=== PATIENT | female | born 1950 | race Hispanic/Latino ===

== ENCOUNTER → 2017-06-12 | Outpatient (CLI) | payer OTHER | END | disposition home or self-care (01) | LOC: RAH 08:25 | PROVIDERS: ATTEND Family Medicine | DX: Z12.31 Encounter for screening mammogram for malignant neoplasm of breast (principal) | CPT/HCPCS: 77067 ==

== ENCOUNTER → 2018-04-09 | Outpatient (CLI) | payer OTHER | END | disposition home or self-care (01) | LOC: RAH 13:18 | PROVIDERS: ATTEND Family Medicine | DX: N23 Unspecified renal colic (principal) | CPT/HCPCS: 76770 ==

== ENCOUNTER → 2018-04-13 | Outpatient (CLI) | payer OTHER ==
[~2018-04-13] MED LIST: LOSA50TA64 PO; NAPR-1023 PO; ONDA4TAB10 PO; TAMS0.4C32 PO; TRAM50TA4 PO
== END | disposition home or self-care (01) ==
LOC: RAH 08:47
PROVIDERS: ATTEND Family Medicine
DX: N13.2 Hydronephrosis with renal and ureteral calculous obstruction (principal)
CPT/HCPCS: 74176

== ENCOUNTER 2018-04-19 08:50 | Day surgery (SDC) | payer OTHER ==
[2018-04-16 15:30] VITALS: BP_SYST 138; BP_DIAS 67; BP_DIAS 77
[2018-04-16 15:37] LABS: APPEARANCE,URINE SLIGHTLY CLOUDY (CLEAR); BILIRUBIN,URINE Negative (NEGATIVE); COLOR,URINE Dark Yellow (YELLOW); GLUCOSE, URINE (UA) Negative (NEGATIVE); KETONES,URINE Trace mg/dL (NEGATIVE); LEUKOCYTE ESTERASE ,URINE Moderate (NEGATIVE); NITRATE,URINE Negative (NEGATIVE); OCCULT BLOOD,URINE Moderate (NEGATIVE); PROTEIN,URINE Negative (NEGATIVE)
[2018-04-16 15:55] LABS: BACTERIA,URINE Few /HPF (None Seen); HYALINE CASTS, URINE 0-1 /LPF (0-1 /LPF); MUCUS,URINE Few LPF (None Seen); SQUAMOUS EPITHELIAL CELL,UR Few /HPF (0-2)
--- NOTE | 2018-04-16 16:00 | NUR ---
NOTE PT STATES THAT SHE JUST WENT TO DR. CUEVAS THIS MORNING TO HAVE HER LABS DRAWN AND EKG WAS DONE WELL. CALLED DR. CUEVAS'S OFFICE, SPOKE TO CHARLIE HERNANDEZ. PER MARY, CBC, CMP, PT/PTT AND EKG WERE DONE THIS AM, AND THAT PT HAS A SURGICAL CLEARANCE FROM DR. CUEVAS WELL. CLEARANCE AND LAB RESULTS WILL BE FAXED WHEN AVAILABLE, WHICH IS AROUND TOMORROW IN THE AFTERNOON. FAX NUMBER HERE IN DAY PT PROVIDED TO MARY, STATED SHE WILL FAX LAB RESULTS, EKG AND CLEARANCE TOMORROW WHEN AVAILABLE. EXPLAINED TO PT THAT IF LAB RESULTS ARE ABNORMAL, WILL NEED TO REDRAW MORNING OF PROCEDURE. PT VERBALIZED UNDERSTANDING.
--- NOTE | 2018-04-18 13:59 | NUR ---
NOTE DR SMITH HAS REVIEWED EKG , NO FURTHER ORDER GIVEN, OK TO PROCEED
--- NOTE | 2018-04-18 14:17 | NUR ---
NOTE ELEVATED PLTS WERE SENT TO DR COULTER OFFICE, PER ANTHONY, IT HAS BEEN REVIEWED BY DR HOWELL , NO FURTHER ORDERS GIVEN
[2018-04-19] VITALS (15 sets, daily range): BP systolic 146–179; BP diastolic 73–85
[~2018-04-19] VITALS: Ht 156.2 cm; Wt 61.1 kg
[2018-04-19] MEDS ORDERED: LACTATED RINGERS 1000ML 1,000 ML IV ONE (09:04)
[2018-04-19] MEDS: CEFTRIAXONE SODIUM 1 GM IVP ONE ×2 (09:15→13:00)
[2018-04-19] MEDS ORDERED: IOHEXOL-350 50ML VIAL IV ONE (11:27)
[2018-04-19] MEDS ORDERED: PROPOFOL 10 MG/ML 20ML VIAL IV ONE (11:39)
[2018-04-19] MEDS ORDERED: LIDOCAINE PF 2% 5ML ABBOJECT ONE (11:39)
[2018-04-19] MEDS ORDERED: FENTANYL CITRATE PF 50 MCG/1 ML 2ML VIAL ONE (11:40)
[2018-04-19] MEDS ORDERED: EPHEDRINE SULFATE 50 MG/ML AMPULE ONE (12:24)
[2018-04-19] MEDS ORDERED: LABETALOL HCL 5 MG/ML 20ML VIAL IV ONE (13:08)
[2018-04-19] MEDS ORDERED: ONDANSETRON HCL 4 MG/2 ML VIAL ONE (13:26)
--- NOTE | 2018-04-19 13:46 | NUR ---
RHETT OWENS NOTIFIED OF CURRENT V/S, NO NEW ORDERS THIS TIME. PACU D/C CRITERIA MET, OK TO TRANSFER TO DAY PATIENT. Addendum: 04/19/18 at 1412 by GILBERT CAMPBELL RN RN Amended: Links added.
== END 2018-04-19 14:50 | disposition home or self-care (01) ==
LOC: DAH 08:50
PROVIDERS: ATTEND Urology
DX: N20.1 Calculus of ureter (principal); E78.5 Hyperlipidemia, unspecified; I10 Essential (primary) hypertension; K21.9 Gastro-esophageal reflux disease without esophagitis; M06.9 Rheumatoid arthritis, unspecified; E11.9 Type 2 diabetes mellitus without complications; Z79.899 Other long term (current) drug therapy; Z98.890 Other specified postprocedural states
CPT/HCPCS: 52356; 71045; 74420; 81001; 82948; 87088; A4218; A4354; A4358; A4600; A6207; C1758; C1769; C1894; C2617; J2001; J2405; J2704; J3010; J3490 ×2; J7030; J7120; Q9967

== ENCOUNTER 2019-02-04 13:13 | Emergency (ER) | payer OTHER ==
[2019-02-04] MEDS ORDERED: DIAZEPAM 5 MG TABLET ONE (14:07)
== END 2019-02-04 16:03 | disposition home or self-care (01) ==
LOC: EDH 13:13
DX: S13.9XXA Sprain of joints and ligaments of unspecified parts of neck, initial encounter (principal); Z88.8 Allergy status to other drugs, medicaments and biological substances; Z98.890 Other specified postprocedural states; V23.4XXA Motorcycle driver injured in collision with car, pick-up truck or van in traffic accident, initial encounter; Y93.89 Activity, other specified; Y92.410 Unspecified street and highway as the place of occurrence of the external cause; Y99.8 Other external cause status
CPT/HCPCS: 70450; 71045; 72125

== ENCOUNTER → 2019-04-17 | Outpatient (CLI) | payer OTHER | END | disposition home or self-care (01) | LOC: RAH 13:35 | PROVIDERS: ATTEND Family Medicine | DX: E04.2 Nontoxic multinodular goiter (principal) | CPT/HCPCS: 76536 ==

== ENCOUNTER → 2019-08-23 | Outpatient (CLI) | payer OTHER | END | disposition home or self-care (01) | LOC: RAH 08:51 | PROVIDERS: ATTEND Family Medicine | DX: I70.0 Atherosclerosis of aorta (principal); I11.9 Hypertensive heart disease without heart failure; I49.9 Cardiac arrhythmia, unspecified | CPT/HCPCS: 93306; 93356 ==

== ENCOUNTER → 2019-08-28 | Outpatient (CLI) | payer OTHER | END | disposition home or self-care (01) | LOC: OIH 10:14 | PROVIDERS: ATTEND Family Medicine | DX: Z01.818 Encounter for other preprocedural examination (principal); M47.819 Spondylosis without myelopathy or radiculopathy, site unspecified; I70.0 Atherosclerosis of aorta | CPT/HCPCS: 71046 ==

== ENCOUNTER 2020-01-11 09:43 | Emergency (ER) | payer OTHER | END 2020-01-11 11:16 | disposition home or self-care (01) | LOC: EDH 09:43 | DX: S09.90XA Unspecified injury of head, initial encounter (principal); I10 Essential (primary) hypertension; Z88.6 Allergy status to analgesic agent; W01.0XXA Fall on same level from slipping, tripping and stumbling without subsequent striking against object, initial encounter; Y93.89 Activity, other specified; Y92.89 Other specified places as the place of occurrence of the external cause; Y99.8 Other external cause status | CPT/HCPCS: 70450 ==

== ENCOUNTER → 2020-01-17 | Outpatient (CLI) | payer OTHER | END | disposition home or self-care (01) | LOC: RAH 13:44 | PROVIDERS: ATTEND Family Medicine | DX: Z12.31 Encounter for screening mammogram for malignant neoplasm of breast (principal) | CPT/HCPCS: 77067 ==

== ENCOUNTER → 2021-02-22 | Outpatient (CLI) | payer OTHER | END | disposition home or self-care (01) | LOC: SHCH 14:39 | PROVIDERS: ATTEND Family Medicine | DX: I08.0 Rheumatic disorders of both mitral and aortic valves (principal); I11.9 Hypertensive heart disease without heart failure; E78.5 Hyperlipidemia, unspecified | CPT/HCPCS: 93306; 93356 ==

== ENCOUNTER 2021-05-08 06:10 | Observation (INO) | payer OTHER ==
[~2021-05-08] VITALS: Ht 157.5 cm; Wt 70.8 kg
[2021-05-08] MEDS ORDERED: NITROGLYCERIN 50MG/D5W 250ML 250 BOT IV SCH (06:30)
[2021-05-08] MEDS ORDERED: ASPIRIN 81MG CHEW TAB PO SCH ×2 (06:30→09:00)
[2021-05-08] MEDS ORDERED: ASPIRIN 325MG TAB ONE (06:31)
[2021-05-08] MEDS ORDERED: NITROGLYCERIN 50MG/D5W 250ML 1 BOT ONE (06:31)
[2021-05-08 06:44] LABS: BASOPHILS % (AUTO) 0.7 % (0.0-5.0); EOSINOPHILS % (AUTO) 2.9 % (0.0-8.0); HEMATOCRIT 39.4 % (36-48); MEAN CORPUSCULAR HEMOGLOBIN 31.2 pg (27.0-33.0); MEAN CORPUSCULAR HGB CONC 32.7 g/dL (32.0-36.0); MEAN CORPUSCULAR VOLUME 95.4 fL (79-99); MONOCYTES % (AUTO) 8.5 % (3.0-13.0); NEUTROPHILS % (AUTO) 59.7 % (40.0-77.0); PLATELET COUNT (AUTO) 233 K/uL (130-400); RED BLOOD CELL COUNT(AUTO) 4.13 MIL/uL (4.00-5.50); RED CELL DISTRIBUTION WIDTH 12.3 % (11.0-15.5); WHITE BLOOD COUNT (AUTO) 5.9 K/uL (4.8-10.8)
[2021-05-08 06:52] LABS: INR 0.98 (0.85-1.15); PROTHROMBIN TIME 10.7 SEC (9.6-11.6)
[2021-05-08 06:56] LABS: CREATININE 0.8 mg/dL (0.5-1.5); POTASSIUM 3.8 mmol/L (3.5-5.1); TOTAL PROTEIN, SERUM 7.3 g/dL (6.0-8.3)
[2021-05-08] MEDS ORDERED: ACETAMINOPHEN WITH CODEINE 1 TAB TAB PO PRN (07:00)
[2021-05-08] MEDS ORDERED: MITOMYCIN 40 MG SYR.W..INJ IV SCH (07:00)
[2021-05-08] MEDS ORDERED: ATOR20TA65 PO (07:55)
[2021-05-08] MEDS ORDERED: CHOL500051 PO (07:55)
[2021-05-08] MEDS ORDERED: AEC81 PO (07:55)
[2021-05-08] MEDS ORDERED: METO-408 PO (07:55)
[2021-05-08] MEDS ORDERED: CLONIDINE HCL 0.1 MG TABLET PO PRN (09:00)
[2021-05-08] MEDS ORDERED: ONDANSETRON 4MG INJ IVP PRN (09:00)
[2021-05-08] MEDS ORDERED: ASPIRIN 325MG TAB PO ONE (09:00)
[2021-05-08] MEDS ORDERED: ACETAMINOPHEN 325 MG TAB PO PRN (09:00)
[2021-05-08] MEDS ORDERED: MORPHINE 2 MG SYG IVP PRN (09:00)
[2021-05-08] MEDS ORDERED: ACETAMINOPHEN 650 MG SUPPOSITORY RC PRN (09:00)
[2021-05-08] MEDS ORDERED: TEMAZEPAM 15 MG CAPSULE PO PRN (09:00)
[2021-05-08] MEDS: ENOXAPARIN SODIUM 40 MG/0.4 ML SYRINGE SQ SCH (09:11)
[2021-05-08] MEDS: INSULIN HUMULIN R 100 UNIT/ML 3ML SQ SCH ×3 (11:30→21:00)
[2021-05-08 12:00] VITALS: BP 117/63
[2021-05-08 16:59] VITALS: BP 115/65
[2021-05-08 19:50] VITALS: BP 112/63
[2021-05-08] MEDS ORDERED: PHARMACY COMMUNICATION MISC SCH (22:30)
[2021-05-09 00:35] VITALS: BP 101/58
[2021-05-09 03:24] LABS: BASOPHILS % (AUTO) 0.7 % (0.0-5.0); EOSINOPHILS % (AUTO) 4.2 % (0.0-8.0); HEMATOCRIT 33.3 % (36-48); LYMPHOCYTES % (AUTO) 38.1 % (21.0-51.0); MEAN CORPUSCULAR HEMOGLOBIN 30.6 pg (27.0-33.0); MEAN CORPUSCULAR HGB CONC 32.1 g/dL (32.0-36.0); MEAN CORPUSCULAR VOLUME 95.1 fL (79-99); MONOCYTES % (AUTO) 9.5 % (3.0-13.0); NEUTROPHILS % (AUTO) 47.3 % (40.0-77.0); PLATELET COUNT (AUTO) 196 K/uL (130-400); RED CELL DISTRIBUTION WIDTH 12.5 % (11.0-15.5); WHITE BLOOD COUNT (AUTO) 4.3 K/uL (4.8-10.8)
[2021-05-09 03:36] LABS: CREATININE 0.9 mg/dL (0.5-1.5); MAGNESIUM 1.7 mg/dL (1.80-2.40)
[2021-05-09 03:38] LABS: B-TYPE NATRIURETIC PEPTIDE 76 pg/mL (0-100)
[2021-05-09 03:50] VITALS: BP 123/66
[2021-05-09] MEDS: INSULIN HUMULIN R 100 UNIT/ML 3ML SQ SCH ×2 (05:52→11:30)
[2021-05-09 07:43] VITALS: BP 121/63
[2021-05-09] MEDS: ENOXAPARIN SODIUM 40 MG/0.4 ML SYRINGE SQ SCH (09:12)
[2021-05-09] MEDS ORDERED: CLON1PAT13 TD (09:52)
[2021-05-09] MEDS ORDERED: CLON0.1T PO (11:27)
[2021-05-09] MEDS ORDERED: METOPROLOL TARTRATE 25 MG TAB PO SCH (21:00)
[2021-05-09] MEDS ORDERED: METOPROLOL SUCCINATE 12.5 MG PO SCH (21:00)
[2021-05-09] MEDS ORDERED: ASPIRIN 81 MG EC TAB PO SCH (21:00)
[2021-05-09] MEDS ORDERED: LOSARTAN 50 MG TABLET PO SCH (21:00)
[2021-05-09] MEDS ORDERED: ***HM***(Cholecalciferol (Vitamin D3) (Vitamin D3) 125 MCG) PO SCH (21:00)
[2021-05-09] MEDS ORDERED: ATORVASTATIN 20 MG TABLET PO SCH (21:00)
== END 2021-05-09 11:38 | disposition home or self-care (01) ==
LOC: EDH 06:10 → EDHIP 08:43 → 2DH 12:00
PROVIDERS: ADMIT Internal Medicine; ATTEND Internal Medicine
DX: I16.0 Hypertensive urgency (principal); I10 Essential (primary) hypertension; R07.89 Other chest pain; E11.9 Type 2 diabetes mellitus without complications; E66.3 Overweight; I48.91 Unspecified atrial fibrillation; E78.00 Pure hypercholesterolemia, unspecified; E66.9 Obesity, unspecified; E78.5 Hyperlipidemia, unspecified; Z68.28 Body mass index [BMI] 28.0-28.9, adult; Z79.82 Long term (current) use of aspirin; Z79.4 Long term (current) use of insulin; Z79.899 Other long term (current) drug therapy; Z88.6 Allergy status to analgesic agent; Z90.710 Acquired absence of both cervix and uterus
CPT/HCPCS: 36415 ×2; 71045; 80048; 80053; 82550 ×3; 82948 ×2; 83735; 83874 ×3; 83880; 84484 ×5; 85025 ×2; 85610; 93005; 96365; 96366; 96372 ×2; 99291; G0378 ×23; J1650 ×2; J3490

== ENCOUNTER 2021-09-03 06:00 | Day surgery (SDC) | payer OTHER ==
[2021-09-01 12:34] LABS: BASOPHILS % (AUTO) 0.3 % (0.0-5.0); EOSINOPHILS % (AUTO) 2.1 % (0.0-8.0); HEMATOCRIT 36.7 % (36-48); LYMPHOCYTES % (AUTO) 23.2 % (21.0-51.0); MEAN CORPUSCULAR HEMOGLOBIN 30.7 pg (27.0-33.0); MEAN CORPUSCULAR HGB CONC 32.7 g/dL (32.0-36.0); MEAN CORPUSCULAR VOLUME 93.9 fL (79-99); MONOCYTES % (AUTO) 6.7 % (3.0-13.0); NEUTROPHILS % (AUTO) 67.4 % (40.0-77.0); PLATELET COUNT (AUTO) 256 K/uL (130-400); RED BLOOD CELL COUNT(AUTO) 3.91 MIL/uL (4.00-5.50); RED CELL DISTRIBUTION WIDTH 12.5 % (11.0-15.5); WHITE BLOOD COUNT (AUTO) 6.7 K/uL (4.8-10.8)
[2021-09-01 12:45] LABS: INR 0.93 (0.85-1.15); PROTHROMBIN TIME 10.1 SEC (9.6-11.6)
[2021-09-01 12:46] LABS: POTASSIUM 4.2 mmol/L (3.5-5.1)
[2021-09-01 12:47] LABS: PARTIAL THROMBOPLASTIN TIME 25.4 SEC (26.3-35.5)
[2021-09-01 12:54] LABS: APPEARANCE,URINE CLEAR (CLEAR); BILIRUBIN,URINE NEGATIVE (NEGATIVE); COLOR,URINE YELLOW (YELLOW); GLUCOSE, URINE (UA) NEGATIVE (NEGATIVE); KETONES,URINE NEGATIVE (NEGATIVE); LEUKOCYTE ESTERASE ,URINE TRACE (NEGATIVE); NITRATE,URINE NEGATIVE (NEGATIVE); OCCULT BLOOD,URINE NEGATIVE (NEGATIVE); PH,URINE 5.5 (5.0-8.0); PROTEIN,URINE NEGATIVE (NEGATIVE); UROBILINOGEN,URINE 0.2 mg/dL (0.2-1.0)
[2021-09-01 13:01] LABS: BACTERIA,URINE Rare /HPF (None Seen); RBC,URINE 0-1 /HPF (0-1); SQUAMOUS EPITHELIAL CELL,UR Rare /HPF (0-2)
[2021-09-01 16:19] VITALS: BP 181/85
[~2021-09-03] VITALS: Ht 157.5 cm; Wt 72.6 kg
[2021-09-03] VITALS (9 sets, daily range): BP systolic 133–193; BP diastolic 61–86
[~2021-09-03 06:00] MED LIST changes: +AEC81 PO; +ATOR20TA65 PO; +CHOL500051 PO; +METO-408 PO; -NAPR-1023 PO; -ONDA4TAB10 PO; -TAMS0.4C32 PO; -TRAM50TA4 PO
[2021-09-03] MEDS ORDERED: 0.9%NACL 1000ML 1,000 ML IV ONE (06:45)
[2021-09-03] MEDS ORDERED: NICARDIPINE 25MG INJ IV ONE (07:08)
[2021-09-03] MEDS ORDERED: HEPARIN 10,000 UNIT/10ML (1,000 UNIT/ML) VIAL ONE (07:08)
[2021-09-03] MEDS ORDERED: NITROGLYCERIN 50MG VIAL ONE (07:08)
[2021-09-03] MEDS ORDERED: IOHEXOL-350 50ML VIAL IV ONE (07:09)
[2021-09-03] MEDS ORDERED: LIDOCAINE HCL 400MG/20ML VIAL ONE (07:09)
[2021-09-03] MEDS ORDERED: IOHEXOL 350 MG/ML 100ML INFUS..BTL IV ONE (07:09)
[2021-09-03] MEDS ORDERED: MIDAZOLAM HCL 1 MG/ML 2ML VIAL ONE (07:57)
[2021-09-03] MEDS ORDERED: FENTANYL CITRATE PF 50 MCG/1 ML 2ML VIAL ONE (07:57)
[2021-09-03] MEDS ORDERED: HYDRALAZINE 20MG/ML VIAL ONE (08:19)
[2021-09-03] MEDS ORDERED: GLUCAGON 1MG KIT 1 MG ML IM PRN (08:30)
[2021-09-03] MEDS ORDERED: DEXTROSE 50%-WATER 50 ML DISP.SYRIN IV PRN (08:30)
== END 2021-09-03 12:45 | disposition home or self-care (01) ==
LOC: DAH 06:00
PROVIDERS: ATTEND Internal Medicine Cardiovascular Disease
DX: I25.119 Atherosclerotic heart disease of native coronary artery with unspecified angina pectoris (principal); I25.82 Chronic total occlusion of coronary artery; E78.5 Hyperlipidemia, unspecified; I10 Essential (primary) hypertension; Z72.89 Other problems related to lifestyle; Z82.49 Family history of ischemic heart disease and other diseases of the circulatory system; Z79.899 Other long term (current) drug therapy; Z98.890 Other specified postprocedural states; Z79.82 Long term (current) use of aspirin; Z79.01 Long term (current) use of anticoagulants
CPT/HCPCS: 36415; 71045; 80048; 81001; 85025; 85610; 85730; 93005; 93458; A4215; A4216; A4221; A4222; A4223 ×3; A4606; A4663; C1760; C1894 ×2; J0360; J1644; J2250; J3010; J3490 ×2; J7030; Q9965; Q9967 ×2; 99156; 99157

== ENCOUNTER → 2022-02-22 | Outpatient (CLI) | payer OTHER | END | disposition home or self-care (01) | LOC: SHCH 11:53 | PROVIDERS: ATTEND Internal Medicine Cardiovascular Disease | DX: I08.0 Rheumatic disorders of both mitral and aortic valves (principal); I25.10 Atherosclerotic heart disease of native coronary artery without angina pectoris; I11.9 Hypertensive heart disease without heart failure; I31.39 Other pericardial effusion (noninflammatory) | CPT/HCPCS: 93306 ==

== ENCOUNTER → 2022-05-11 | Outpatient (CLI) | payer OTHER | END | disposition home or self-care (01) | LOC: RAH 09:35 | PROVIDERS: ATTEND Family Medicine | DX: Z12.31 Encounter for screening mammogram for malignant neoplasm of breast (principal) | CPT/HCPCS: 77067 ==

== ENCOUNTER → 2024-05-28 | Outpatient (CLI) | payer OTHER ==
--- NOTE | 2024-05-28 11:31 | HMCIMG ---
MAMMO SCREENING BILATERAL HISTORY: Screening mammogram. COMPARISON: 05/15/2023 TECHNIQUE: Bilateral screening mammogram with CAD was performed with craniocaudal and mediolateral oblique projections. FINDINGS: The breasts are heterogeneous dense, which may obscure small masses. Vascular calcifications are seen. There is no evidence of a dominant mass, or suspicious microcalcification. There is no evidence of nipple retraction or skin thickening. IMPRESSION: 1. Stable mammogram. Patient was entered into a reminder system with a target due date for their next mammogram. BI-RADS: CATEGORY 2: BENIGN FINDINGS Recommend monthly self breast exam as well as annual clinical examination. A negative x-ray should not delay biopsy if a dominant or clinically suspicious mass is present, since 8-10% of cancers are not identified by mammography. Dense breasts particularly, may obscure an underlying neoplasm. Some of these may be detected clinically and therefore, clinical examination is an essential part of breast evaluation.
== END | disposition home or self-care (01) ==
LOC: RAH 10:15
PROVIDERS: ATTEND Family Medicine
DX: Z12.31 Encounter for screening mammogram for malignant neoplasm of breast (principal); R92.333 Mammographic heterogeneous density, bilateral breasts; R92.1 Mammographic calcification found on diagnostic imaging of breast
CPT/HCPCS: 77067